=== PATIENT | female | born 1970 | race Caucasian/White ===

== ENCOUNTER 2024-12-30 08:58 | Day surgery (SDC) | payer OTHER, SELFPAY ==
[2024-12-30] VITALS (7 sets, daily range): BP systolic 101–111; BP diastolic 67–77; PULSE 64–73; RESP 16–18; TEMP 36.3–36.5; O2SAT 96–99; BMI 21.9
--- NOTE | 2024-12-30 09:35 | PCM.PRE.AN2 ---
ASA Classification* ASA Classification ASA Classification: 2 Assessment & Plan Anesthesia* Anesthesia Assessment Anesthesia Assessment: Discussed sedation and/or anesthesia options, risks, benefits, and alternatives with patient/parents/legal guardian/POA. Questions invited. The patient/parents/legal guardian/POA seems to understand and agrees to proceed with anesthesia plan. Reviewed the physical assessment, medical history, allergy history and patient home medications list prior to surgery/procedure/anesthetic and documented any changes. Performed airway and anesthesia risk assessments. Anesthesia Type Anesthesia Type: MAC Anesthesia Focused Assessment* Airway Assessment Mouth opens: >3 cm Mallampati Score: II Labs Anesthesia Preop lab: CBC CHEMISTRY COAG Pre-Assessment Diagnosis/Proposed Procedure Planned Operative Procedure(s): Colonoscopy Anesthesia History Anesthesia History - creel cleaner: Anesthesia History - creel cleaner Hx Hospitalization No 12/26/24 15:53 Any Problems With Anesthesia No 12/26/24 15:53 Cholinesterase deficiency No 12/26/24 15:53 You/Your Family Experience No 12/26/24 15:53 fever (hyperthermia) with Relationship Recent Exposure to Contagious Disease Does patient have nerve No 12/26/24 15:53 stimulator Patient instructed to have device shut off --Does patient have Pacemaker or ICD? When Was Last Pacemaker Check QUESTION #4 FULL TEXT: You/Your Family Experience fever (hyperthermia) with Anesthesia Last Oral Intake Last Oral intake: Last Oral Intake NPO since Meds taken in AM with sips of water? Meds patient instructed to take am of surgery PONV PONV - creel cleaner: PONV - creel cleaner Female Yes 12/26/24 15:53 HX of Motion Sickness No 12/26/24 15:53 HX of N/V After Surgery No 12/26/24 15:53 Non-Smoker Yes 12/26/24 15:53 Duration of Surgery greater No 12/26/24 15:53 than 60 minutes Number of Risk Factors 2 12/26/24 15:53 PONV Score Moderate Risk 12/26/24 15:53 Respiratory Assessment Respiratory Assessment - creel cleaner: Respiratory Tract Infection Hx - creel cleaner Hx Respiratory Tract Infection No 12/26/24 15:53 STOP Sleep Apnea STOP Sleep Apnea - creel cleaner: STOP Sleep Apnea - creel cleaner Hx Hypertension No 12/26/24 15:53 Hx Sleep Apnea No 12/26/24 15:53 CPAP BIPAP Do you snore loudly (louder No 12/26/24 15:53 than talking or can be heard Do you often feel tired/ No 12/26/24 15:53 fatigued/ sleepy during daytime? Has anyone observed you stop No 12/26/24 15:53 breathing during sleep? STOP Results Negative 12/26/24 15:53 QUESTION #5 FULL TEXT : Do you snore loudly (louder than talking or can be heard through closed doors)? Tobacco Use History Tobacco Use History - creel cleaner: Tobacco Use History - creel cleaner Tobacco Use Smoking Status Never smoker 12/26/24 15:53 Hx Tobacco Use No 12/26/24 15:53 Years Smoking Packs Smoked per Day Smoking Cessation Date was within the last 15 years Hx Smoking Cessation Date Hx Smoking Cessation Counseling Hematologic Medial History Hematologic Hx - creel cleaner: Hematologic Medical Hx - dyeing machine feeder Hx of Blood Transfusion No 12/26/24 15:53 Hx of Transfusion in last 3 No 12/26/24 15:53 Months Date of Last Transfusion (if within last 3 months) Ever experience any problems No 12/26/24 15:53 with transfusion(s)? Specify any problems Hx of Preganancy in last 3 No 12/26/24 15:53 Months Nurse Filling Out Transfusion KARLA 12/26/24 15:53 & Questions: Date: 12/26/24 12/26/24 15:53 Time: 15:54 12/26/24 15:53 Patient unable to answer at this time (ie. confused, unrespo /Reproduction History /Reproductive History - creel cleaner: /Reproductive Hx- creel cleaner Hx Now No 12/26/24 15:53 Gestational Age (in weeks): EDC: Hx Hx Para Hx Section SAB No 12/26/24 15:53 Active Medications Active Medications: Current Medications Generic Name Dose Route Start Last Admin Trade Name Freq PRN Reason Stop Dose Admin Lactated Ringer's 1,000 mls @ 15 mls/hr 12/30/24 09:30 IV .Q48H AMBER PFSH Medical History (Updated 12/26/24 @ 15:53 by Tomeka Rojas) Wears hearing aid Heartburn Home Medications ?Medication ?Instructions ?Recorded ?Last Taken ?Type calcium no.26 167 mg-magnesium 1 cap PO .QD 12/26/24 Unknown History no.15 83 mg-zinc 5 mg capsule cholecalciferol (vitamin D3) 10 400 unit PO DAILY 12/26/24 Unknown History mcg (400 unit) capsule (Vitamin D3) multivitamin (Daily Value tablet) 1 tab PO DAILY 12/26/24 Unknown History omega 6-[id number]-[id number]-fish oil 300 1 cap PO DAILY 12/26/24 Unknown History mg-1,000 mg capsule (Fish Oil) Allergy/AdvReac Type Severity Reaction Status Date / Time Sulfa (Sulfonamide AdvReac Mild HIVES Verified 12/26/24 15:48 Antibiotics) Surgical History (Updated 12/26/24 @ 15:53 by Tomeka Rojas) History of ear surgery Social History Smoking Status: Never smoker Review of Systems (Anesthesia) ROS Narrative System reviewed and no additional complaints, except as documented.
--- OUTSIDE RECORDS SUMMARY | 2024-12-30 09:36 | XMS RPT_ITS | CCD ---
Author Organization [facility] ion [facility] Care Team Providers Care Seed Potato Arranger Name Role Phone Ivanauskas, Saulius Unavailable Unavailable Ivanauskas, Saulius Unavailable Unavailable Sebas Rascon Unavailable Unavailable JUANA DALTON Attending Unavailable JUANA DALTON Referring Unavailable Unavailable Primary Care Provider Unavailabl e Unavailable Primary Care Provider Unavailabl e Unavailable Primary Care Provider Unavailabl e KRYSTLE JUANA K Referring Unavailable KRYSTLE JUANA K Attending Unavailable KRYSTLE JUANA K Referring Unavailable KRYSTLE JUANA K Attending Unavailable MAURA BECK Attending Unavailable SELF, SELF Referring Unavailable Quan Calabrese Attending Unavailable Allergies Allergy Classification Reported Allergen(s) Allergy Type Date of Onset Reaction(s) Facility (1 source) Sulfonamides (Antibiotic); Translations: [sulfa drugs] Propensity to adverse reactions to drug (disorder) [facility] (8 sources) Clindamycin Drug Allergy 7 Rash [facility] (8 sources) Sulfonamides (Antibiotic) Propensity to adverse reactions to drug 7 Hives [facility] Medications Current Medications Medication Drug Class(es) Dates Sig (Normalized) Sig (Original) calcium carbonate 1250 mg / cholecalciferol 200 unt oral tablet (6 sources) Vitamin D calcium-vitamin D 500-200 MG-UNIT tablet Take by mouth daily. Active calcium-vitamin D 500-200 MG-UNIT tablet (2 sources) calcium-vitamin D 500-200 MG-UNIT tablet Take by mouth daily. Active estradiol 0.1 mg/ml vaginal cream (10 sources) Estrogen Start: 01-27-2024 estradiol 0.1 MG/GM cream Insert 0.5 g vaginally three times a week. 42.5 g 2 01/27/2024 Active Start: 01-29-2023 End: 01-27-2024 estradiol 0.1 MG/GM cream in sert 0.5 gram vaginally two times a week 42.5 g 01/29/2023 01/27/2024 Discontinued (Reorder) Start: 07-31-2022 estradiol (EST RACE VAGINAL) 0.1 MG/GM cream Insert 0.5 g vaginally twice a week. 42.5 g 1 07/31/2022 Active Start: 04-05-2020 End: 07-29-2022 estradiol (ESTRACE VAGINAL) 0.1 MG/GM cream Insert 0.5 g vaginally twice a week. 42.5 g 1 04/05/2020 07/29/2022 Discontinued (Reorder) Multiple Vitamins-Minerals ( MULTIVITAMIN ADULT PO) (8 sources) Multiple Vitamin s-Minerals (MULTIVITAMIN ADULT PO) Take by mouth. Active Multiple Vitamin s-Minerals (MULTIVITAMIN ADULT PO) Take by mouth. 0 Active [place]-3 Fatty Acids (FISH OI L) 1200 MG Cap (8 sources) [place]-3 Fatty Ac ids (FISH OIL) 1200 MG Cap Take by mouth. Active [place]-3 Fatty Ac ids (FISH OIL) 1200 MG Cap Take by mouth. 0 Active ZINC-VITAMIN C PO (8 sources) ZINC-VITAMIN C P O Take by mouth. Active ZINC-VITAMIN C P O Take by mouth. 0 Active Completed/Discontinued Medications Medication Drug Class(es) Dates Sig (Normalized) Sig (Original) Bioflavonoid Products (BIOFLEX PO) (5 sources) End: 01-27-2024 Bioflavonoid Products (BIOFLEX PO) Take by mouth. 01/27/2024 Discontinued (Therapy completed) Bioflavonoid Pro ducts (BIOFLEX PO) Take by mouth. Active Bioflavonoid Pro ducts (BIOFLEX PO) Take by mouth. 0 Active estrogens, conjugated (intermediate) 0.625 mg/ml vaginal cream (7 sources) Estrogen Start: 04-17-2021 End: 01-27-2024 estrogens conjugated 0.625 MG/GM Cream 1 gram to vagina at hs twice a week. 30 g 1 04/17/2021 01/27/2024 Discontinued (Therapy completed) Ethinyl Estradiol / Levonorgestrel (14 sources) Progestin, Estrogen, Progestin-containi ng Intrauterine Device Start: 03-07-2019 End: 01-27-2024 take 1 tablet by mouth once daily LEVONEST 50-30/75-40/ 125-30 MCG Tab take 1 tablet by mouth once daily 28 tablet 03/07/2019 01/27/2024 Discontinued (Therapy completed) Start: 02-24-2017 End: 01-27-2024 levonorgestrel-ethinyl estra diol (ENPRESSE-28) Tab Take 1 tablet by mouth daily. 1 Package 12 02/24/2017 01/27/2024 Discontinued (Other (suppress cancel msg)) Start: 02-24-2017 take 1 tablet by cindy th once daily LEVONEST 50-30/75-40/ 125-30 MCG Tab manuela e 1 tablet by mouth once daily 28 tablet 03/07/2019 Active Misc Natural Products (OSTEO BI-FLEX JOINT SHIELD PO) (7 sources) End: 01-27-2024 Misc Natural Products (OSTEO BI-FLEX JOINT SHIELD PO) Take by mouth. 01/27/2024 Discontinued (Therapy completed) Misc Natural Pro ducts (OSTEO BI-FLEX JOINT SHIELD PO) Take by mouth. Active Misc Natural Pro ducts (OSTEO BI-FLEX JOINT SHIELD PO) Take by mouth. 0 Active Problems Active Problems Problem Classification Problem Date Documented Date Episodic/Chronic Malaise and fatigue (1 source) Fatigue; Translations: [Chronic fatigue, unspecified] Chronic Menopausal disorders (1 source) Atrophic vaginitis; Translations: [Postmenopausal atrophic vaginitis] Chronic Nonmalignant breast conditions (2 sources) Unspecified lump in unspecified breast; Translations: [Unspecified lump in unspecified breast] Onset: 04-23-2018 Other ear and sense organ disorders (12 sources) Mixed conductive and sensorineural hearing loss, bilateral; Translations: [Mixed conductive and sensorineural hearing loss, bilateral] Onset: 03-18-2012 Chronic Other ear and sense organ disorders (2 sources) Mixed conductive and sensorineural hearing loss, bilateral; Translations: [Mixed conductive and sensorineural hearing loss, bilateral] Onset: 03-18-2012 Chronic Other ear and sense organ disorders (1 source) Bilateral subjective tinnitus of ears; Translations: [Tinnitus, bilateral] Episodic Other ear and sense organ disorders (1 source) Pain of ear structure; Translations: [Otalgia, bilateral] Episodic Other female genital disorders (1 source) Lesion of vulva; Translations: [Other specified noninflammatory disorders of vulva and perineum] 01-27-2024 Episodic Other screening for suspected conditions (not mental disorders or infectious disease) (7 sources) Patient encounter status; Translations: [Encounter for other screening for malignant neoplasm of breast] Onset: 04-22-2024 Episodic Other skin disorders (1 source) Loss of hair; Translations: [Nonscarring hair loss, unspecified] Episodic Past or Other Problems Problem Classification Problem Date Documented Date Episodic/Chronic Conditions associated with dizziness or vertigo (8 sources) Dizziness and giddiness; Translations: [Dizziness and giddiness] Onset: 03-27-2011 03-27-2011 Episodic Other ear and sense organ disorders (8 sources) Mixed conductive AND sensorineural hearing loss; Translations: [Mixed conductive and sensorineural hearing loss, unspecified] Onset: 02-05-2010 Resolved: 03-18-2012 12-30-2021 Chronic Other ear and sense organ disorders (8 sources) Subjective tinnitus; Translations: [Tinnitus, unspecified ear] Onset: 03-27-2011 03-27-2011 Episodic Results Test Name Value Interpretation Reference Range Facil ity AUDIOGRAMon 10-20-2024 [facility] Radiology Study observation (narrative) [facility] PAP IG,RFX HPV ASCUon 2023 . . Normal [facility] Comment on above: Performed By: #### L PRAS #### [place] [address] . Comment Normal [facility] Comment on above: Result Comment: (NOT E) The HPV DNA reflex criteria were not met with this specimen result therefore, no HPV testing was performed. Source.............Cervix;Endocervix Other..............Post Menopausal No. of containers..01 ThinPrep Vial Performed By: #### L PRAS #### [place] [address] DIAGNOSIS: Comment [facility] Comment on above: Result Comment: NEGA TIVE FOR INTRAEPITHELIAL LESION OR MALIGNANCY. Performed By: #### L PRAS #### Testing performed at [place] [id number] NOTE: Comment [facility] Comment on above: Result Comment: (NOT E) The Pap smear is a screening test designed to aid in the detection of premalignant and malignant conditions of the uterine cervix. It is not a diagnostic procedure and should not be used as the sole means of detecting cervical cancer. Both false-positive and false-negative reports do occur. Performed By: #### L PRAS #### Testing performed at [place] [id number] PERFORMED BY: Comment [facility] Comment on above: Result Comment: Yasmeen Chowdary, Boring Machine Operator Horizontal (ASCP) Performed By: #### L PRAS #### [place] [address] SPECIMEN ADEQUACY: Comment [facility] Comment on above: Result Comment: (NOT E) Satisfactory for evaluation. Endocervical and/or squamous metaplastic cells (endocervical component) are present. Performed By: #### L PRAS #### [place] [address] TEST METHODOLOGY: Comment [facility] Comment on above: Result Comment: (NOT E) This liquid based ThinPrep(R) pap test was screened with the use of an image guided system. PERFORMED AT [facility] Performed By: #### L PRAS #### Testing performed at [place] [id number] POCT OCCULT BLOOD STOOLon Hemoglobin.gastroint estinal Ql (Stl) Negative [facility] Interpretation and review of laboratory results Normal [facility] AUDIOGRAMon 04-20-2023 [facility] AUDIOGRAMon 04-17-2023 Radiology Study observation (narrative) [facility] No Panel Informationon 07-29 [facility] POCT OCCULT BLOOD STOOLon Hemoglobin.gastroint estinal Ql (Stl) Negative [facility] Interpretation and review of laboratory results Normal [facility] TSH W/FT4 REFLEXon 3 TSH Qn 2.690 m[IU]/L Score [facility] Comment on above: Testing performed at [facility], [place], [place] [address] AUDIOGRAMon 04-10-2022 [facility] Radiology Study observation (narrative) [facility] US BREAST LIMITED UNILATERAL RIGHTon 04-23-2018 Protein mass conc PROCEDURE: US BREAST LIMITED UNILATERAL RIGHT 04/23/2018 1:12 PM EST CLINICAL HISTORY: Palpable lump right breast. COMPARISON: 04/05/2018. TECHNIQUE: Targeted sonographic evaluation of the right breast was performed. FINDINGS: Sonographic evaluation of the right breast from the 6 to 9 o'clock position was performed. There is a 0.4 x 0.3 x 0.4 cm simple appearing cyst at the 7 o'clock position of the breast. There are no suspicious sonographic masses. IMPRESSION: There is a small cyst in the right breast at the 7 o'clock position. No other suspicious sonographic abnormalities. BI-RADS Category 2: Benign. Normal [facility]3] Vital Signs Date Time Vital Sign Value Performing Clinician Faci lity 01-27-2024 10:59-0400 Body height 165.1 cm Juana Dalton MD Work Phone: [facility] 01-27-2024 10:59-0400 Body mass index (BMI) [Ratio] 22.63 kg/m2 uJana Dalton MD Work Phone: [facility] 01-27-2024 10:59-0400 Body weight 61.69 kg Juana Dalton MD Work Phone: [facility] 01-27-2024 10:59-0400 Diastolic blood pressure 80 mm[Hg] Juana Dalton MD Work Phone: [facility] 01-27-2024 10:59-0400 Systolic blood pressure 118 mm[Hg] Juana Dalton MD Work Phone: [facility] 07-29-2022 15:49-0400 Body height 165.1 cm Juana Dalton MD Work Phone: [facility] 07-29-2022 15:49-0400 Body mass index (BMI) [Ratio] 21.3 kg/m2 Juana Dalton MD Work Phone: [facility] 07-29-2022 15:49-0400 Body weight 58.06 kg Juana Dalton MD Work Phone: [facility] 07-29-2022 15:49-0400 Diastolic blood pressure 77 mm[Hg] Juana Dalton MD Work Phone: [facility] 07-29-2022 15:49-0400 Heart rate 83 /min Juana Dalton MD Work Phone: [facility] 07-29-2022 15:49-0400 Systolic blood pressure 121 mm[Hg] Juana Dalton MD Work Phone: [facility] Encounters Encounter Date Encounter Type Care Provider Facility Start: 12-30-2024 ambulatory [facility] lit:[facility] Start: 10-20-2024 End: 10-20-2024 Patient encounter procedure Maura Beck [facility] Work Phone: [facility] [place] Comment on above: Mixed hearing loss, bilateral (Primary Dx) Start: 10-20-2024 ambulatory MAURA BECK Facility:[facility] Start: 04-22-[address] [facility] Start: 01-27-2024 End: 01-27-2024 Patient encounter procedure Juana Dalton MD Work Phone: [facility] Work Phone: Start: 01-27-2024 End: 01-27-2024 Periodic preventive med est patient 40-64yrs Juana Dalton MD Work Phone: [facility] JAVA ANALYST Comment on above: Well woman exam with routine gynecological exam (Primary Dx); Encounter for screening mammogram for malignant neoplasm of breast; Colon cancer screening; Lesion of vulva Start: 01-27-2024 [facility] Start: 07-10-2023 End: 07-10-2023 Patient encounter procedure Maura Mooneyk AuD Work Phone: [facility] [place] Comment on above: Mixed hearing loss, bilateral (Primary Dx) Start: 04-30-2023 End: 04-30-2023 Documentation procedure Mandy Modi [facility] [place] Start: 04-17-2023 End: 04-17-2023 Patient encounter procedure Maura Berry Beck AuD Work Phone: [facility] [place] Comment on above: Mixed hearing loss, bilateral (Primary Dx) Start: 07-29-2022 End: 07-29-2022 Patient encounter procedure Juana Dalton MD Work Phone: [facility] JAVA ANALYST Start: 07-29-2022 End: 07-29-2022 Periodic preventive med est patient 40-64yrs Juana Dalton MD Work Phone: [facility] JAVA ANALYST Comment on above: Well woman exam with routine gynecological exam (Primary Dx); Encounter for screening mammogram for malignant neoplasm of breast; Colon cancer screening; Atrophic vaginitis; Chronic fatigue; Hair loss Start: 04-18-2022 End: 04-18-2022 Subsequent hospital visit by physician Juana Dalton MD Work Phone: [facility] Comment on above: Arrived Start: 04-10-2022 End: 04-10-2022 Patient encounter procedure Misty Sally Ezequiel AuD Work Phone: [facility] Comment on above: Mixed hearing loss, bilateral (Primary Dx); Subjective tinnitus, bilateral; Acute pain of both ears Start: 04-23-2018 Patient encounter procedure JUANA DALTON [facility]3] Start: 03-13-2017 End: 03-13-2017 Emergency department patient visit Michael Brock Facility:[facility] Procedures Date Procedure Procedure Detail Performing Clinician Start: 10-20-2024 AUDIOGRAM Maura vidal AuD Work Phone: Start: 01-27-2024 Blood occult peroxid ase actv qual feces 1 deter Juana K Krystle MD Work Phone: Start: 04-17-2023 AUDIOGRAM Maura Smart Ki rk AuD Work Phone: Start: 07-29-2022 End: 07-29-2022 Blood occult peroxidase actv qual feces 1 jo Dalton MD Work Phone: Start: 04-10-2022 AUDIOGRAM Misty Nieves AuD Work Phone: Plan of Treatment Date Care Activity Detail Author Start: 10-26-2025 End: 10-26-2025 Patient encounter procedure 10/26/2025 10:00 AM EDT [facility] [address] [place] [address] Maura Beck, AuD [address] [facility] [address] [place] [address] [facility] [place] Start: 04-22-2025 Screening for malign ant neoplasm of breast MAMMOGRAM SCREENING DISCUSSION [facility] Start: 01-31-2025 End: 01-31-2025 Patient encounter procedure 01/31/2025 3:50 PM EST Office Visit [facility] JAVA ANALYST [address] [place] [phone] Juana Dalton MD [address] [place] [phone] [facility] JAVA ANALYST Start: 01-26-2025 Screening for malign ant neoplasm of cervix CERVICAL CANCER SCREENING DISCUSSION [facility] Start: 01-26-2025 Screening for malign ant neoplasm of colon COLORECTAL CANCER SCREENING DISCUSSION [facility] Start: 11-28-2024 Influenza vaccination INFLUENZA VACC INE (#1) [facility] Start: 04-20-2024 Screening for malign ant neoplasm of breast MAMMOGRAM SCREENING DISCUSSION [facility] Start: 01-27-2024 End: 01-26-2025 PRABHAKAR CYTOLOGY-THERAPEUTIC RECREATION ASSISTANT, LIQUID BASED PRABHAKAR CYTOLOGY-THERAPEUTIC RECREATION ASSISTANT, LIQUID BASED Cytology Routine Well woman exam with routine gynecological exam Expected: 01/27/2024, Expires: 01/26/2025 [facility] Comment on above: Expected: 01/27/2024 , Expires: 01/26/2025 Start: 01-27-2024 End: 01-26-2025 MG Breast - bilateral Screening MAMMO SCREENING WITH JERONIMO BILATERAL Imaging Routine Encounter for screening mammogram for malignant neoplasm of breast Expected: 01/27/2024, Expires: 01/26/2025 [facility] Comment on above: Expected: 01/27/2024 , Expires: 01/26/2025 Start: 11-29-2023 COVID-19 VACCINE ( season) COVID-19 VACCINE () [facility] Start: 11-29-2023 COVID-19 VACCINE () COVID-19 VACCINE () [facility] Start: 11-29-2023 Influenza vaccination [facility] [place] Start: 08-11-2023 End: 08-11-2023 Patient encounter procedure [facility] JAVA ANALYST Start: 07-30-2023 Screening for malign ant neoplasm of cervix CERVICAL CANCER SCREENING DISCUSSION [facility] Start: 07-30-2023 Screening for malign ant neoplasm of colon COLORECTAL CANCER SCREENING DISCUSSION [facility] Start: 04-18-2023 Screening for malign ant neoplasm of breast MAMMOGRAM SCREENING DISCUSSION [facility] Start: 04-16-2023 End: 04-16-2023 Patient encounter procedure 04/16/2023 Office Visit Audiology Misty Nieves, AuD [address] [place] [address] [facility] [place] Start: 11-28-2022 COVID-19 VACCINE ( season) COVID-19 VACCINE () [facility] Start: 11-28-2022 Influenza vaccination A [facility] Start: 07-29-2022 End: 07-30-2023 PRABHAKAR CYTOLOGY-THERAPEUTIC RECREATION ASSISTANT, LIQUID BASED PRABHAKAR CYTOLOGY-THERAPEUTIC RECREATION ASSISTANT, LIQUID BASED Cytology Routine Well woman exam with routine gynecological exam Expected: 07/29/2022, Expires: 07/30/2023 [facility] Comment on above: Expected: 07/29/2022 , Expires: 07/30/2023 Start: 07-29-2022 End: 07-30-2023 MG Breast - bilateral Screening MAMMO SCREENING WITH JERONIMO BILATERAL Imaging Routine Encounter for screening mammogram for malignant neoplasm of breast Expected: 07/29/2022, Expires: 07/30/2023 [facility] Comment on above: Expected: 07/29/2022 , Expires: 07/30/2023 Start: 04-29-2022 End: 04-29-2022 Patient encounter procedure 04/29/2022 Office Visit JAVA ANALYST Juana Dalton MD [address] [place] [phone] [facility] JAVA ANALYST Start: 04-18-2022 End: 04-18-2022 Patient encounter procedure 04/18/2022 Appointment Mammography Juana Dalton MD [address] [place] [phone] [facility] MAMMOGRAPHY Start: 04-17-2022 Screening for malign ant neoplasm of breast MAMMOGRAM SCREENING DISCUSSION [facility] Start: 04-17-2022 Screening for malign ant neoplasm of cervix CERVICAL CANCER SCREENING DISCUSSION [facility] Start: 04-17-2022 Screening for malign ant neoplasm of colon COLORECTAL CANCER SCREENING DISCUSSION [facility] Start: 04-15-2022 Zoster vaccine hzv l milton for subcutaneous use ZOSTER (SHINGLES) VACCINE (2 of 2) [facility] Start: 11-28-2021 Influenza vaccination INFLUENZA VACC INE (#1) [facility] Start: 2018 Pneumococcal vaccination PNEUMOCOCCAL VACCINE SERIES (1 of 1 - PCV) [facility] Start: 2008 Lipid panel LIPID SCREENING [facility] Start: 1987 Hepatitis B vaccination HEP B VACCINE (1 of 3 - 19+ 3-dose series) [facility] Start: 1987 Third diphtheria, tetanus and acellular pertussis (DTaP) vaccination TDAP (ADULT) [facility] Start: 1983 HIV screening HIV SCREENING DISCUSSION [facility] Start: 1968 COVID-19 VACCINE (#1) COVID-19 VACCI NE (#1) [facility] Start: 1968 Hepatitis B vaccination HEP B VACCINE (1 of 3 - 3-dose series) [facility] Start: 1968 Hepatitis C screening HEPATITI S C VIRUS SCREENING [facility] Start: 1968 Tetanus vaccination TETANUS [facility] End: 04-18-2022 MG Breast - bilateral Screening [facility] Comment on above: 1 Occurrences starti ng 04/18/2022 until 04/18/2022 PAP IG, RFX HPV ASCU PAP IG, RFX HPV ASCU Cytology Routine 07/29/2022 4:10 PM EDT [facility] PAP IG, RFX HPV ASCU PAP IG, RFX HPV ASCU Cytology Routine 01/27/2024 11:25 AM [facility] Immunizations Immunization Date Immunization Notes Care Provider Yulissa sanchez 02-18-2022 zoster vaccine, unspecified formulation Misty Lester Work Phone: [facility] Payers Date Payer Category Payer Self-pay 2018 Managed Care (unspecified) MMO [id number] 2016 Unknown 2016 Unknown [id number] 1968 Unknown [id number] 1968 Unknown [id number] 1968 Unknown [id number] Unknown [id number] Social History Date Type Detail Facility Start: 02-24-2017 End: 01-27-2024 Tobacco smoking status NHIS Never smoked tobacco [facility] Start: 02-24-2017 End: 01-27-2024 Tobacco use and exposure Smokeless tobacco non-user [facility] Start: 04-17-2021 End: 01-27-2024 Alcohol intake Current drinker of alcohol (finding) [facility] Start: 04-03-2020 End: 04-02-2021 History SDOH Alcohol Frequency 2 [facility] Start: 04-02-2021 History SDOH Alcohol Std Drinks 1 [facility] Start: 04-02-2021 History SDOH Social Connections Living 3 [facility] Start: 04-02-2021 History SDOH Financial 5 [facility] Start: 02-24-2017 Alcohol Comment consumes occassioanl ly [facility] Start: 1970 Sex Assigned At Not on file [facility] [place] Start: 03-31-2022 End: 07-29-2022 Exposure to SARS-CoV-2 (event) Not sure [facility] Start: 04-02-2021 End: 01-27-2024 History of Social function [facility] Start: 04-02-2021 End: 01-27-2024 Social connection and isolation panel [facility] Frequency of Social Gatherings with Friends and Family Not on file [facility] Are you now , , , , never or living with a partner? [facility] How often to you hav e a drink containing alcohol? Monthly or less [facility] How many standard drinks containing alcohol do you have on a typical day? 1 or 2 [facility] How often do you hav e 6 or more drinks on 1 occasion? Never [facility] Do you feel stress - tense, restless, nervous, or anxious, or unable to sleep at night because your mind is troubled all the time - these days [OSQ] Only a little [facility] (I/We) worried wheth er (my/our) food would run out before (I/we) got money to buy more. Never true [facility] In the past 12 month s, was there a time when you were not able to pay the mortgage or rent on time? No [facility] Gender identity Identifies as fe male gender (finding) [facility] Start: 05-02-2012 Sex Female (finding) [facility] NEGATED: Highlighted rowStart: NINF History of tobacco use Passive smoker [facility] Clinical Notes 04-10-2022 to 10-20-2024 Maura Beck, AuD - 10/20/2024 10:00 AM Garcia Dalton MD - 01/27/2024 11:20 AM Destini Beck, AuD - 07/10/2023 11:30 AM Saira Modi - 04/30/2023 2:37 PM EST Note Date & Type Note Facility 10-20-2024 History of Present illness Narrative Images from the original note were not included. Audiologic Evaluation Tiana Mendez presents for audiologic evaluation and hearing aid check. Patient wears binaural Phonak Audeo L50-[id number]. Retention tails. Sm pwr domes. Devices are under-warranty. Patient reports good hearing aid benefit. Patient reports relatively consistent device use. Patient denies any hearing aid concerns. Please note that a copy of the audiogram is located in the procedure tab of patient's electronic medical record. Results reviewed with patient. Patient provided a copy of audiogram, per request. Hearing aids were cleaned/checked. Microphone ports were vacuumed and brushed. Wax filter replaced. Sm pwr domes replaced. Retention tails replaced. Devices ran through 1x cycle in dry chamber. Listening check indicates good sound quality. Patient given a small supply of domes and wax filters. Confirmed firmware up to date. Updated programming to reflect most recently obtained audiometric thresholds. Additional programming adjustments not made. Patient pre-scheduled for 1-year follow-up appointment. Rx patient return to [facility] sooner if needed. Patient verbalized understanding. N/C today, in-warranty. ICD-10-CM 1. Mixed hearing loss, bilateral H90.6 Melissa Giles Doctor of Audiology Department of Otolaryngology-Head and Neck Surgery [address] [facility] [place] [address] documented in this encounter [facility] 01-27-2024 History of Present illness Narrative Subjective History of Present Illness Patient for annual examination. No concerns, but states she still has a small area of soreness on her L labia minora. Creates pain only with intercourse. Is using estradiol cream 2 x per week and doing well. The following portions of the patients of the chart have reviewed and updated as required. Patient Active Problem List Diagnosis Subjective tinnitus Dizziness and giddiness Mixed hearing loss, bilateral Current Outpatient Medications Medication Sig Dispense Refill calcium-vitamin D 500-200 MG-UNIT tablet Take by mouth daily. estradiol 0.1 MG/GM cream Insert 0.5 g vaginally three times a week. 42.5 g 2 Multiple Vitamins-Minerals (MULTIVITAMIN ADULT PO) Take by mouth. [place]-3 Fatty Acids (FISH OIL) 1200 MG Cap Take by mouth. ZINC-VITAMIN C PO Take by mouth. No current facility-administered medications for this visit. Past Medical History: Diagnosis Date Hearing loss Allergies Allergen Reactions Clindamycin Rash Sulfa Antibiotics Hives Past Surgical History: Procedure Laterality Date EAR SURGERY Bilateral x4 ORAL SURGERY root canal OB History 0 Para 0 Term 0 0 AB 0 Living 0 SAB 0 IAB 0 Ectopic 0 Molar 0 Multiple 0 Live Births 0 Social History Socioeconomic History Marital status: Spouse name: Not on file Number of children: Not on file Years of education: Not on file Highest education level: Not on file Occupational History Not on file Tobacco Use Smoking status: Never Passive exposure: Never Smokeless tobacco: Never Vaping Use Vaping status: Never Used Substance and Sexual Activity Alcohol use: Yes Comment: consumes occassioanlly Drug use: Never Sexual activity: Yes Partners: Male control/protection: Menopause, None Other Topics Concern Service Not Asked Blood Transfusions Not Asked Caffeine Concern Not Asked Occupational Exposure Not Asked Hobby Hazards Not Asked Sleep Concern Not Asked Stress Concern Not Asked Weight Concern Not Asked Special Diet Not Asked Back Care Not Asked Exercise Not Asked Bike Helmet Not Asked Seat Belt Not Asked Domestic Violence Not Asked Social History Narrative Not on file Social Determinants of Health Financial Resource Strain: Low Risk (04/02/2021) Overall Financial Resource Strain (CARDIA) Difficulty of Paying Living Expenses: Not hard at all Food Insecurity: No Food Insecurity (04/02/2021) Hunger Vital Sign Worried About Running Out of Food in the Last Year: Never true Ran Out of Food in the Last Year: Never true Transportation Needs: No Transportation Needs (04/02/2021) PRAPARE - Transportation Lack of Transportation (Medical): No Lack of Transportation (Non-Medical): No Physical Activity: Not on file Stress: No Stress Concern Present (04/02/2021) [place] [employer] - Occupational Stress Questionnaire Feeling of Stress : Only a little Social Connections: Unknown (04/02/2021) Social Connection and Isolation Panel [NHANES] Frequency of Communication with Friends and Family: Once a week Frequency of Social Gatherings with Friends and Family: Not on file Attends Advent Services: Not on file Active Member of Clubs or Organizations: Not on file Attends Club or Organization Meetings: Not on file Marital Status: Intimate Partner Violence: Not At Risk (04/02/2021) Humiliation, Afraid, Rape, and Kick questionnaire Fear of Current or Ex-Partner: No Emotionally Abused: No Physically Abused: No Sexually Abused: No Housing Stability: Unknown (04/02/2021) Housing Stability Vital Sign Unable to Pay for Housing in the Last Year: No Number of Places Lived in the Last Year: Not on file Unstable Housing in the Last Year: No Family History Problem Relation Age of Onset Tuberculosis Mother Heart Disease - Other Mother Breast Cancer Mother Diabetes Father Objective Review of Systems Constitutional: Negative. Negative for activity change, appetite change, diaphoresis, fatigue and fever. HENT: Negative. Negative for congestion, ear discharge, ear pain and hearing loss. Eyes: Negative. Negative for pain, redness and visual disturbance. Respiratory: Negative for apnea, choking, chest tightness, shortness of breath, wheezing and stridor. Cardiovascular: Negative for chest pain, palpitations and leg swelling. Gastrointestinal: Negative for abdominal distention, abdominal pain, blood in stool, constipation, diarrhea, nausea, rectal pain and vomiting. Endocrine: Negative for cold intolerance, heat intolerance and polyuria. Genitourinary: Negative for difficulty urinating, dysuria, enuresis, frequency, hematuria and urgency. Right vulvar irritation as noted with intercourse as noted in [place] Musculoskeletal: Negative for arthralgias, gait problem, myalgias, neck pain and neck stiffness. Skin: Negative for color change, pallor, rash and wound. Allergic/Immunologic: Negative for environmental allergies and immunocompromised state. Neurological: Negative for dizziness, tremors, seizures, syncope, facial asymmetry, weakness, numbness and headaches. Hematological: Negative for adenopathy. Does not bruise/bleed easily. Psychiatric/Behavioral: Negative for agitation, behavioral problems, confusion, dysphoric mood, hallucinations, self-injury, sleep disturbance and suicidal ideas. The patient is not nervous/anxious. Psych Review of Symptoms: Depressive Symptoms: No fatigue. Elimination Symptoms: No constipation. Psychotic Symptoms: No hallucinations. Vitals: Blood pressure 118/80, height 5' 5 (1.651 m), weight 136 lb (61.7 kg), last menstrual period 03/31/2019. Physical Exam Vitals and nursing note reviewed. Constitutional: General: She is not in acute distress. Appearance: She is well-developed. She is not diaphoretic. HENT: Head: Normocephalic and atraumatic. Nose: Nose normal. Mouth/Throat: Pharynx: No oropharyngeal exudate. Eyes: General: No scleral icterus. Right eye: No discharge. Left eye: No discharge. Conjunctiva/sclera: Conjunctivae normal. Pupils: Pupils are equal, round, and reactive to light. Neck: Thyroid: No thyromegaly. Trachea: No tracheal deviation. Cardiovascular: Rate and Rhythm: Normal rate and regular rhythm. Heart sounds: Normal heart sounds. No murmur heard. No friction rub. No gallop. Pulmonary: Effort: Pulmonary effort is normal. No respiratory distress or retractions. Breath sounds: Normal breath sounds. No wheezing or rales. Chest: Chest wall: No mass, deformity or tenderness. Breasts: Breasts are symmetrical. Right: No inverted nipple, mass, nipple discharge, skin change or tenderness. Left: No inverted nipple, mass, nipple discharge, skin change or tenderness. Abdominal: General: Bowel sounds are normal. There is no distension. Palpations: Abdomen is soft. There is no mass. Tenderness: There is no abdominal tenderness. There is no guarding or rebound. Hernia: There is no hernia in the left inguinal area. Genitourinary: Exam position: Supine. Labia: Right: No rash, tenderness, lesion or injury. Left: No rash, tenderness, lesion or injury. Vagina: Normal. No signs of injury and foreign body. No vaginal discharge, erythema or tenderness. Cervix: No cervical motion tenderness or discharge. Uterus: Not deviated, not enlarged, not fixed and not tender. Adnexa: Right: No mass, tenderness or fullness. Left: No mass, tenderness or fullness. Rectum: Normal. Guaiac result negative. No mass or tenderness. Comments: Vulva normal except for approximately 1 cm area of the right lower labia minora with what appears to be an area of scarring that is tender, but no raised lesion, etc. Tender to palpation. Musculoskeletal: General: Normal range of motion. Cervical back: Normal range of motion and neck supple. Lymphadenopathy: Cervical: No cervical adenopathy. Skin: General: Skin is warm and dry. Neurological: Mental Status: She is alert and oriented to person, place, and time. Cranial Nerves: No cranial nerve deficit. Psychiatric: Judgment: Judgment normal. Neurological Exam Mental Status Alert. Oriented to person, place, and time. Cranial Nerves CN III, IV, : Pupils equal round and reactive to light bilaterally. Assessment and Plan 1. Well woman exam with routine gynecological exam Normal exam accept as noted. Pap performe d - PRABHAKAR CYTOLOGY-THERAPEUTIC RECREATION ASSISTANT, LIQUID BASED; Future 2. Encounter for screening mammogram for malignant neoplasm of breast Normal exam, mammogram ordered - MAMMO SCREENING WITH JERONIMO BILATERAL; Future 3. Colon cancer screening Heme negative, normal exam - POCT OCCULT BLOOD STOOL 4. Lesion of vulva Will continue with estradiol vaginal cream. Patient counseled regarding possibility of excision of the small area of tenderness with intercourse, but risks of additional scarring or continued pain also discussed. To consider, and will call if desires to excise. Return in about 1 year (around 01/26/2025) for with TK, Annual Exam. The documentation within this encounter was likely aided with Dragon, and electronic bilingual student tutor device. Please excuse any errors or omissions that may not have been recognized at the time of this encounter. documented in this encounter [facility] 07-10-2023 History of Present illness Narrative Images from the original note were not included. Hearing Aid Fitting Tiana Mendez presents for a hearing aid fitting, accompanied by her . Patient fit binaurally with Phonak Moberg Researcheo L50-RT. Retention tails. Sm pwr domes. Feedback movie theater manager run. On-ear verification completed at 100% acclimatization. Programming adjustments made in order to obtain NAL-NL2 targets. Enabled use of VC. Patient was counseled on care, use, cleaning, and manager library. Insertion and removal was practiced in-office. Gave all accessories including user manual, manager library, cleaning tools, storage case, and audio wipes. Discussed cerushield change and change of domes. Patient given a small pack of sm pwr domes. Hearing aids were paired to patient's phone in-office. Successfully paired devices to [employer] jem. Reviewed use of jem and practice streaming performed with success. Reviewed realistic expectations. Discussed appropriate use and reviewed with patient that hearing aids do not operate as hearing protection. Patient signed hearing aid contract and ABN. Medical waiver signed. Per billing check of benefits, patient appears to have a possible hearing aid benefit. Reviewed with patient this is an estimation of benefit and is not a guarantee of payment. Patient verbalized understanding and signed Advanced Beneficiary Notice (ABN). The ABN is an acknowledgement that it is unlikely insurance will cover the full cost of the hearing aids purchased and patient will be responsible for full balance. Patient verbalized understanding with this. Patient paid full hearing aid balance today. Patient lives a distance away and opted not to pre-schedule a 2 week check. Patient will follow-up as needed. 1-year follow-up post card will be sent. Patient verbalized understanding. ICD-10-CM 1. 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 Hearing aid information entered into flowsheet. OLVERA was placed on the construction pit worker and charged. Pt is kelsea'd at [facility] 05/29/2023. MR documented in this encounter [facility] 04-17-2023 History of Present illness Narrative Images from the original note were not included. Audiologic Evaluation Tiana Mendez presents for updated audiologic evaluation, accompanied by her . She is a previous patient of Dr. Ritter. Patient has previous hx of left hearing aid use. Patient lost her left hearing aid and has not worn amplification for several years. Patient reports she is interested in pursuing updated technology. Please note that a copy of the audiogram is located in the procedure tab of patient's electronic medical record. Results reviewed with patient and her . New, binaura amplification recommended. Patient previously wore RITE style device and would like to pursue this for new technology. Patient interested in rechargeability and connectivity. Based on lifestyle needs assessment, patient has ultimately selected binaural, Phonak Audeo L50-RT. Color: chestnut. #2M receivers. Discussed pricing, warranty, trial period and cost. Discussed realistic expectations. Reviewed with patient importance of still using hearing protection with loud noise exposure. Insurance information not available today. This will be obtained and will be communicated to the patient via phone. Patient verbalized understanding. Patient is aware that an Advanced Beneficiary Notice (ABN) will be presented at the hearing aid fitting for signature. The ABN is an acknowledgement that it is unlikely that insurance will cover the full cost of the hearing aids purchased and that the patient will be responsible for the balance. Patient signed hearing aid dean quote. Patient did not pay hearing aid deposit today and will be responsible for full balance at device fitting. She verbalized understanding. Patient will be scheduled for hearing aid fitting when devices arrive. Patient should contact me if questions/concerns arise in interim. ICD-10-CM 1. Mixed hearing loss, bilateral H90.6 Melissa Giles Doctor of Audiology Department of Otolaryngology-Head and Neck Surgery [address] [facility] [place] [address] documented in this encounter [facility] 07-29-2022 History of Present illness Narrative History of Present Illness Patient presents for annual examination. She voices no specific concerns; however, she does described hair loss and worsening fatigue. Her place of employment is asking them to work 10 hour days 6 days out of the week. She is a triggering some of her fatigue to simply that hours that she works. She also describes bilateral breast tenderness. No nipple discharge. No skin retraction. Last mammogram was earlier this year and normal. She does drink a large amount of chocolate milk and eats significant amounts of chocolate. She denies coffee, tea, or pop. Patient does describe having stopped her estrogen vaginal cream. Patient has had slightly more soreness and small amounts of spotting after intercourse. The following portions of the patients of the chart have reviewed and updated as required. Patient Active Problem List Diagnosis Subjective tinnitus Dizziness and giddiness Mixed hearing loss, bilateral Current Outpatient Medications Medication Sig Dispense Refill Bioflavonoid Products (BIOFLEX PO) Take by mouth. calcium-vitamin D 500-200 MG-UNIT tablet Take by mouth daily. [START ON 07/31/2022] estradiol (ESTRACE VAGINAL) 0.1 MG/GM cream Insert 0.5 g vaginally twice a week. 42.5 g 1 Multiple Vitamins-Minerals (MULTIVITAMIN ADULT PO) Take by mouth. [place]-3 Fatty Acids (FISH OIL) 1200 MG Cap Take by mouth. ZINC-VITAMIN C PO Take by mouth. estrogens conjugated 0.625 MG/GM Cream 1 gram to vagina at hs twice a week. (Patient not taking: Reported on 07/29/2022) 30 g 1 LEVONEST 50-30/75-40/ 125-30 MCG Tab take 1 tablet by mouth once daily (Patient not taking: Reported on 07/29/2022) 28 tablet 0 levonorgestrel-ethinyl estradiol (ENPRESSE-28) Tab Take 1 tablet by mouth daily. (Patient not taking: Reported on 07/29/2022) 1 Package 12 Misc Natural Products (OSTEO BI-FLEX JOINT SHIELD PO) Take by mouth. (Patient not taking: Reported on 07/29/2022) No current facility-administered medications for this visit. Past Medical History: Diagnosis Date Hearing loss Allergies Allergen Reactions Clindamycin Rash Sulfa Antibiotics Hives Past Surgical History: Procedure Laterality Date EAR SURGERY Bilateral x4 ORAL SURGERY root canal OB History 0 Para 0 Term 0 0 AB 0 Living 0 SAB 0 IAB 0 Ectopic 0 Molar 0 Multiple 0 Live Births 0 Social History Socioeconomic History Marital status: Spouse name: Not on file Number of children: Not on file Years of education: Not on file Highest education level: Not on file Occupational History Not on file Tobacco Use Smoking status: Never Smokeless tobacco: Never Vaping Use Vaping Use: Never used Substance and Sexual Activity Alcohol use: Yes Comment: consumes occassioanlly Drug use: Never Sexual activity: Yes Partners: Male control/protection: Menopause, None Other Topics Concern Service Not Asked Blood Transfusions Not Asked Caffeine Concern Not Asked Occupational Exposure Not Asked Hobby Hazards Not Asked Sleep Concern Not Asked Stress Concern Not Asked Weight Concern Not Asked Special Diet Not Asked Back Care Not Asked Exercise Not Asked Bike Helmet Not Asked Seat Belt Not Asked Domestic Violence Not Asked Social History Narrative Not on file Social Determinants of Health Financial Resource Strain: Not on file Food Insecurity: Not on file Transportation Needs: Not on file Physical Activity: Not on file Stress: Not on file Social Connections: Not on file Intimate Partner Violence: Not on file Housing Stability: Not on file Family History Problem Relation Age of Onset Tuberculosis Mother Heart Disease - Other Mother Breast Cancer Mother Diabetes Father Review of Systems Constitutional: Positive for fatigue. Negative for activity change, appetite change, diaphoresis and fever. HENT: Negative. Negative for congestion, ear discharge, ear pain and hearing loss. Eyes: Negative. Negative for pain, redness and visual disturbance. Respiratory: Negative for apnea, choking, chest tightness, shortness of breath, wheezing and stridor. Cardiovascular: Negative for chest pain, palpitations and leg swelling. Gastrointestinal: Negative for abdominal distention, abdominal pain, blood in stool, constipation, diarrhea, nausea, rectal pain and vomiting. Endocrine: Negative for cold intolerance, heat intolerance and polyuria. Genitourinary: Negative for difficulty urinating, dysuria, enuresis, frequency, hematuria and urgency. Musculoskeletal: Negative for arthralgias, gait problem, myalgias, neck pain and neck stiffness. Skin: Negative for color change, pallor, rash and wound. Patient describes hair loss Allergic/Immunologic: Negative for environmental allergies and immunocompromised state. Neurological: Negative for dizziness, tremors, seizures, syncope, facial asymmetry, weakness, numbness and headaches. Hematological: Negative for adenopathy. Does not bruise/bleed easily. Psychiatric/Behavioral: Negative for agitation, behavioral problems, confusion, dysphoric mood, hallucinations, self-injury, sleep disturbance and suicidal ideas. The patient is not nervous/anxious. Vitals: Blood pressure 121/77, pulse 83, height 5' 5 (1.651 m), weight 128 lb (58.1 kg), last menstrual period 03/31/2019. Physical Exam Vitals and nursing note reviewed. Constitutional: General: She is not in acute distress. Appearance: She is well-developed. She is not diaphoretic. HENT: Head: Normocephalic and atraumatic. Nose: Nose normal. Mouth/Throat: Pharynx: No oropharyngeal exudate. Eyes: General: No scleral icterus. Right eye: No discharge. Left eye: No discharge. Conjunctiva/sclera: Conjunctivae normal. Pupils: Pupils are equal, round, and reactive to light. Neck: Thyroid: No thyromegaly. Trachea: No tracheal deviation. Cardiovascular: Rate and Rhythm: Normal rate and regular rhythm. Heart sounds: Normal heart sounds. No murmur heard. No friction rub. No gallop. Pulmonary: Effort: Pulmonary effort is normal. No respiratory distress or retractions. Breath sounds: Normal breath sounds. No wheezing or rales. Chest: Chest wall: No mass, deformity or tenderness. Breasts: Breasts are symmetrical. Right: No inverted nipple, mass, nipple discharge, skin change or tenderness. Left: No inverted nipple, mass, nipple discharge, skin change or tenderness. Abdominal: General: Bowel sounds are normal. There is no distension. Palpations: Abdomen is soft. There is no mass. Tenderness: There is no abdominal tenderness. There is no guarding or rebound. Hernia: There is no hernia in the left inguinal area. Genitourinary: Exam position: Supine. Labia: Right: No rash, tenderness, lesion or injury. Left: No rash, tenderness, lesion or injury. Vagina: Normal. No signs of injury and foreign body. No vaginal discharge, erythema or tenderness. Cervix: No cervical motion tenderness or discharge. Uterus: Not deviated, not enlarged, not fixed and not tender. Adnexa: Right: No mass, tenderness or fullness. Left: No mass, tenderness or fullness. Rectum: Normal. Guaiac result negative. No mass or tenderness. Musculoskeletal: General: Normal range of motion. Cervical back: Normal range of motion and neck supple. Lymphadenopathy: Cervical: No cervical adenopathy. Skin: General: Skin is warm and dry. Neurological: Mental Status: She is alert and oriented to person, place, and time. Cranial Nerves: No cranial nerve deficit. Psychiatric: Judgment: Judgment normal. Neurological Exam Mental Status Alert. Oriented to person, place, and time. Cranial Nerves CN III, IV, : Pupils equal round and reactive to light bilaterally. Assessment and Plan 1. Well woman exam with routine gynecological exam Normal exam, Pap smear performed - PRABHAKAR CYTOLOGY-THERAPEUTIC RECREATION ASSISTANT, LIQUID BASED; Future 2. Encounter for screening mammogram for malignant neoplasm of breast Normal exam, mammogram ordered - MAMMO SCREENING WITH JERONIMO BILATERAL; Future 3. Colon cancer screening Heme-negative, normal exam - POCT OCCULT BLOOD STOOL 4. Atrophic vaginitis We will continue with estradiol vaginal cream 0.5 mg to the vagina twice weekly. 5. Chronic fatigue We will check TSH - TSH W/FT4 REFLEX; Future - TSH W/FT4 REFLEX 6. Hair loss See above - TSH W/FT4 REFLEX; Future - TSH W/FT4 REFLEX No follow-ups on file. The documentation within this encounter was likely aided with Dragon, and electronic bilingual student tutor device. Please excuse any errors or omissions that may not have been recognized at the time of this encounter. documented in this encounter [facility] 04-10-2022 History of Present illness Narrative Images from the original note were not included. I counseled her over the results and gave her a copy for her and one for her employer. Scheduled Apr 16, 2023 for next audiogram. documented in this encounter [facility] Evaluation note Diagnosis Mixed hearing loss, bilateral- Primary Subjective tinnitus, bilateral Acute pain of both ears [facility] Encounter for breast cancer screening using non-mammogram modality [facility] Well woman exam with routine gynecological exam- Primary Routine gynecological examination Encounter for screening mammogram for malignant neoplasm of breast Other screening mammogram Colon cancer screening Special screening for malignant neoplasms, colon Atrophic vaginitis Postmenopausal atrophic vaginitis Chronic fatigue Other malaise and fatigue Hair loss Alopecia, unspecified [facility] Mixed hearing loss, bilateral- Primary [facility] Diagnosis Well woman exam with routine gynecological exam- Primary Routine gynecological examination Encounter for screening mammogram for malignant neoplasm of breast Other screening mammogram Colon cancer screening Special screening for malignant neoplasms, colon Lesion of vulva Other specified noninflammatory disorder of vulva and perineum [facility] Diagnosis Mixed hearing loss, bilateral- Primary [facility] Attachments The following attachments cannot be sent through Care Everywhere. * Female Exams and Screenings ([facility]) (Bengali) [facility] Family History No Family History Records FoundNo Family History Records FoundNo Family History Records FoundNo Family History Records FoundNo Family History Records Found Advance Directives No Advanced Directives Records FoundNo Advanced Directives Records FoundNo Advanced Directives Records FoundNo Advanced Directives Records FoundNo Advanced Directives Records Found Reason for Referral Specialty Diagnoses / Procedures Referred By Contac t Referred To Contact Diagnoses Encounter for breast cancer screening using non-mammogram modality Procedures MAMMO SCREENING WITH JERONIMO BILATERAL Juana Dalton MD [address] [address] Referral ID Status Reason Start Date Expiration Date Visits Re quested Visits Authorized [id number] Closed 04/17/2021 05/12/2022 1 1 Specialty Diagnoses / Procedures Referred By Contac t Referred To Contact Diagnoses Encounter for screening mammogram for malignant neoplasm of breast Procedures MAMMO SCREENING WITH JERONIMO BILATERAL Juana Dalton MD [address] [address] Referral ID Status Reason Start Date Expiration Date V isits Requested Visits Authorized [id number] New Request 07/29/2022 08/23/2023 1 1 Referral ID Status Reason Start Date Expiration Date V isits Requested Visits Authorized [id number] Authorized 01/27/2024 02/20/2025 1 1 Additional Source Comments INFORMATION SOURCE (unrecogn ized section and content) DATE CREATED AUTHOR 09/22/2017 [facility] DATE CREATED AUTHOR AUTHOR'S ORGANIZ ATION 05/04/2018 [facility] DATE CREATED AUTHOR AUTHOR'S ORGANIZ ATION 04/23/2024 [facility] DATE CREATED AUTHOR AUTHOR'S ORGANIZ ATION 10/21/2024 [facility] DATE CREATED AUTHOR AUTHOR'S ORGANIZ ATION 12/17/2024 [facility] Reason for Visit (unrecogniz ed section and content) Reason Comments Hearing Problem Specialty Diagnoses / Procedures Referred By Contac t Referred To Contact Diagnoses Encounter for breast cancer screening using non-mammogram modality Procedures MAMMO SCREENING WITH JERONIMO BILATERAL Juana Dalton MD [address] [address] Referral ID Status Reason Start Date Expiration Date Visits Re quested Visits Authorized [id number] Closed 04/17/2021 05/12/2022 1 1 Reason Comments Annual Exam Labs obtained 1 red tube top via venipuncture,right a/c,1x attempt. Patient tolerated well. Bandage applied. Reason Comments Hearing Loss Reason Comments Hearing Aid Check Reason Comments Hearing Aid Fitting Reason Comments Annual Exam FOR RECORDS PERTAINING TO PATIENTS WHO ARE OR HAVE BEEN ENROLLED IN A CHEMICAL DEPENDENCY/SUBSTANCEABUSE PROGRAM, SOME INFORMATION MAY BE OMITTED. This clinical summary was aggregated from multiple sources. Caution should be exercised in using it in the provision of clinical care. This summary normalizes information from multiple sources, and as a consequence, information in this document may materially change the coding, format and clinical context of patient data. In addition, data may be omitted in some cases. CLINICAL DECISIONS SHOULD BE BASED ON THE PRIMARY CLINICAL RECORDS. [facility] [employer] provides no warranty or guarantee of the accuracy or completeness of information in this document.
--- NOTE | 2024-12-30 10:25 | HP.PCM_ITS ---
HPI - General HPI Narrative MISTY MENDEZ, is a 54 F who presents for screening colonoscopy. Patient has never had a colonoscopy in the past. Patient denies abdominal pain or blood in the stool. No family history of colon cancer. [facility] Medical History (Updated 12/30/24 @ 10:[address] Quan Calabrese MD) Wears hearing aid Heartburn Home Medications ?Medication ?Instructions ?Recorded ?Last Taken ?Type calcium no.26 167 mg-magnesium 1 cap PO .QD 12/26/24 Unknown History no.15 83 mg-zinc 5 mg capsule cholecalciferol (vitamin D3) 10 400 unit PO DAILY 11/29 12/22 Unknown History mcg (400 unit) capsule (Vitamin D3) multivitamin (Daily Value tablet) 1 tab PO DAILY 12/26 Unknown History omega 2-hrq-agm-fish oil 300 1 cap PO DAILY 12/26/24 U nknown History mg-1,000 mg capsule (Fish Oil) Allergy/AdvReac Type Severity Reaction Status Date / Time Sulfa (Sulfonamide AdvReac Mild HIVES Verified 12/26/24 15:48 Antibiotics) Surgical History (Updated 12/26/24 @ 15:53 by Tomeka Rojas) History of ear surgery Social History Smoking Status: Never smoker Past Medical/Surgical History Planned Operation Planned Operative Procedure(s): Colonoscopy Previous Hospitalizations/Surgeries HX Hospitalizations: No Any Problems With Anesthesia: No You/Your Family Experience Fever (Hyperthermia) With Anes: No Cholinesterase deficiency: No Cardiovascular Hx Hypertension: No Respiratory Hx Sleep Apnea: No Hx Respiratory Tract Infection/Cold (presently): No Do You Snore Loudly (louder than talking or can be heard): No Do You Often Feel Tired/ Fatigued/ Sleepy Dring Daytime?: No Has Anyone Observed You Stop Breathing During Sleep?: No Result (for STOP score): Negative Smoking Status: Never smoker Neurological Does patient have nerve stimulator: No Reproduction : No Miscellaneous Recent Exposure to Contagious Disease: No Allergies Sulfa (Sulfonamide Antibiotics) Adverse Reaction (Mild, Verified 12/26/24 15:48) HIVES Discharge Is Pt Admitted From a [facility], or a Care Home: No After D/C, Where Do you Plan to Go: Return Home Vital Signs Vital Signs Vital Signs: 12/30/24 09:42 12/30/24 09:42 Temperature 97.7 F L Temperature Source Temporal Pulse Rate 64 Respiratory Rate 16 Respiratory Pattern Normal Blood Pressure 101/77 Blood Pressure Mean 85 Blood Pressure Source Monitor Blood Pressure Position Semi-Fowlers Blood Pressure Location Left Arm Pulse Ox 97 Oxygen Delivery Method Room Air Weight Weight: 127 lb 13.89 oz Body Mass Index (BMI) 21.9 Physical Exam Const alert and oriented x3 HEENT normocephalic Eyes PERRL Resp normal respiratory effort and normal air movement Cardio regular rate and regular rhythm GI soft to palpation, non-tender and non-distended Extremity normal to inspection Assessment & Plan Assessment/Plan (1) Screen for colon cancer: PLAN: I explained endoscopy in detail to the patient. I explained the risks i ncluding but not limited to stroke or heart attack with anesthesia, perforation of the GI tract, bleeding, infection. I explained that any of these could necessitate further emergency surgery. The patient understands and all questions were answered sufficiently. The patient wishes to proceed with procedure. Quan Calabrese MD Pager: [facility] [address] [place] [address] [address] [place] [address] Office: Surgery Risks - Colonoscopy Risks Include but are not Limited To: Risks include but are not limited to: Bleeding, perforation requiring further surgery, inability to complete colonoscopy requiring barium enema.
[2024-12-30] MEDS: Lidocaine 1% (5 ml sdv) 5 ML Vial IV (10:38)
--- NOTE | 2024-12-30 10:55 | OP.PROVAT_ITS ---
12/30/2024 No Primary Care Physician Re : Colonoscopy procedure for Tiana Talley Dear Care Physician This procedure was performed on Monday, December 30, 2024. My impressions and recommendations are as follows: Impressions : - The entire examined colon is normal on direct and retroflexion views. - No specimens collected. Recommendations : - Discharge patient to home. - Resume previous diet. - Continue present medications. - Repeat colonoscopy in 10 years for screening purposes. My findings are described in the full procedure note, which is enclosed. If I can be of further assistance, please feel free to contact me at Doctor phone number(s): , Work: . Sincerely, Quan Calabrese MD 12/30/2024 10:54:19 AM This report has been signed electronically.
--- NOTE | 2024-12-30 10:55 | OP.COLON_ITS ---
Patient Name: Tiana Talley Procedure Date: 12/30/2024 10:30 AM Date of : 1970 Age: 54 Procedure: Colonoscopy Indications: Screening for colorectal malignant neoplasm Providers: Quan Calabrese MD Referring MD: Quan Calabrese MD Medicines: Propofol per Anesthesia Patient Profile: This is a 54 year old female. Refer to note in patient chart for documentation of history and physical. Last Colonoscopy: none. The patient's first colonoscopy is today. Complications: No immediate complications. Procedure: Pre-Anesthesia Assessment: - Prior to the procedure, a History and Physical was performed, and patient medications and allergies were reviewed. The patient's tolerance of previous anesthesia was also reviewed. The risks and benefits of the procedure and the sedation options and risks were discussed with the patient. All questions were answered, and informed consent was obtained. Prior Anticoagulants: The patient has taken no anticoagulant or antiplatelet agents. ASA Grade Assessment: II - A patient with mild systemic disease. After reviewing the risks and benefits, the patient was deemed in satisfactory condition to undergo the procedure. After I obtained informed consent, the scope was passed under direct vision. Throughout the procedure, the patient's blood pressure, pulse, and oxygen saturations were monitored continuously. The Colonoscope was introduced through the anus and advanced to the cecum, identified by appendiceal orifice and ileocecal valve. The colonoscopy was performed without difficulty. The patient tolerated the procedure well. The quality of the bowel preparation was good. The ileocecal valve, appendiceal orifice, and rectum were photographed. Scope In: 10:39:39 AM Scope Withdrawal Time 0 hours 4 minutes 49 seconds Scope Out: 10:52:05 AM Total Procedure Duration Time 0 hours 12 minutes 26 seconds Findings: The entire examined colon appeared normal on direct and retroflexion views. Impression: - The entire examined colon is normal on direct and retroflexion views. - No specimens collected. Recommendation: - Discharge patient to home. - Resume previous diet. - Continue present medications. - Repeat colonoscopy in 10 years for screening purposes. Procedure Code(s): --- Professional --- 65572, Colonoscopy, flexible; diagnostic, including collection of specimen(s) by brushing or washing, when performed (separate procedure) Diagnosis Code(s): --- Professional --- Z12.11, Encounter for screening for malignant neoplasm of colon CPT copyright 2021 [employer]. All rights reserved. The codes documented in this report are preliminary and upon chain builder review may be revised to meet current compliance requirements. Quan Calabrese MD 12/30/2024 10:54:19 AM This report has been signed electronically. Number of Addenda: 0 Note Initiated On: 12/30/2024 10:30 AM
--- NOTE | 2024-12-30 10:58 | PCM.POST.ANE ---
Anesthesia: Postop Eval I Current Vital Signs Temperature: 97.7 F Pulse Rate: 64 Blood Pressure: 103/76 Respiratory Rate: 16 Pulse Ox: 97 Oxygen Delivery Method: Room Air Assessment Airway patent: Yes Spontaneous unlabored respirations: Yes Mental status: Awake and Calm nausea: No Vomiting: No Anesthesia Complication: No Fluid Hydration Crystalloid volume administer (ml): 300 Total IV fluid infused: 300 Progress Note Anesthesia document: Postop Eval 1 completed: Yes
--- NOTE | 2024-12-30 11:10 | POSTOPAN2_ITS ---
Anesthesia Postop Eval I Sum Postop Eval Completion status Anesthesia document: Postop Eval 1 completed: Yes Anesthesia Postop Eval I Summary Anesthesia Postop Eval I Summary: Anesthesia Postop Eval I: Assessment Summary Airway patent Yes 12/30/24 10:59 ENVIRONMENTAL SERVICES ATTENDANT.SHOF Spontaneous unlabored Yes 12/30/24 10:59 ENVIRONMENTAL SERVICES ATTENDANT.SHOF respirations Mental status Awake,Calm 12/30/24 10:59 ENVIRONMENTAL SERVICES ATTENDANT.SHOF nausea No 12/30/24 10:59 ENVIRONMENTAL SERVICES ATTENDANT.SHOF Vomiting No 12/30/24 10:59 ENVIRONMENTAL SERVICES ATTENDANT.SHOF Anesthesia Postop Eval I: Fluid Summary Crystalloid volume administer 300 12/30/24 10:59 ENVIRONMENTAL SERVICES ATTENDANT.SHOF (ml) Colloids volume administered ( ml) Blood Product volume administered (ml) Total IV fluid infused 300 12/30/24 10:59 ENVIRONMENTAL SERVICES ATTENDANT.SHOF Anesthesia Postop Eval I: Summary Notes Anesthesia Complication No 12/30/24 10:59 ENVIRONMENTAL SERVICES ATTENDANT.SHOF Anesthesia Complication Comment: Post-operative progress note Anesthesia: Postop Eval II Evaluation Mental status: Awake Pain Level: 0 nausea: No Vomiting: No
--- NOTE | 2024-12-30 11:10 | PCM.POSTANE2 ---
Anesthesia Postop Eval I Sum Postop Eval Completion status Anesthesia document: Postop Eval 1 completed: Yes Anesthesia Postop Eval I Summary Anesthesia Postop Eval I Summary: Anesthesia Postop Eval I: Assessment Summary Airway patent Yes 12/30/24 10:59 CARE PROFESSIONAL.SHOF Spontaneous unlabored Yes 12/30/24 10:59 CARE PROFESSIONAL.SHOF respirations Mental status Awake,Calm 12/30/24 10:59 CARE PROFESSIONAL.SHOF nausea No 12/30/24 10:59 CARE PROFESSIONAL.SHOF Vomiting No 12/30/24 10:59 CARE PROFESSIONAL.SHOF Anesthesia Postop Eval I: Fluid Summary Crystalloid volume administer 300 12/30/24 10:59 CARE PROFESSIONAL.SHOF (ml) Colloids volume administered ( ml) Blood Product volume administered (ml) Total IV fluid infused 300 12/30/24 10:59 CARE PROFESSIONAL.SHOF Anesthesia Postop Eval I: Summary Notes Anesthesia Complication No 12/30/24 10:59 CARE PROFESSIONAL.SHOF Anesthesia Complication Comment: Post-operative progress note Anesthesia: Postop Eval II Evaluation Mental status: Awake Pain Level: 0 nausea: No Vomiting: No
== END 2024-12-30 11:34 | disposition home or self-care (01) ==
LOC: EN 09:13 → AC 09:14
PROVIDERS: PCP Family Medicine; Referring Provider Surgery; Visit Provider Surgery
PROC: 0DJD8ZZ Inspection of Lower Intestinal Tract, Via Natural or Artificial Opening Endoscopic (ICD-10-PCS; CPT 45378; principal; 2024-12-30 10:10)
DX: Z12.11 Encounter for screening for malignant neoplasm of colon (principal)
CPT/HCPCS: 45378